=== PATIENT | female | born 1965 | race Caucasian/White ===

== ENCOUNTER 2016-12-01 14:28 | Day surgery (SDC) | payer BC ==
[2016-12-01] VITALS (11 sets, daily range): BP systolic 104–171; BP diastolic 52–71; PULSE 54–66; RESP 16–22; Ht 165.1 cm; Wt 109.0 kg
[~2016-12-01] VITALS: Ht 165.1 cm; Wt 109.0 kg
[2016-12-01] MEDS ORDERED: METF850T PO (16:40)
[2016-12-01] MEDS ORDERED: DAPA5TAB PO (16:40)
[2016-12-01] MEDS ORDERED: PROP40SO PO (16:40)
[2016-12-01] MEDS ORDERED: LISI20TA11 PO (16:40)
[2016-12-01] MEDS ORDERED: [UNRECOGNIZED DRUG - CODE] MC (16:40)
[2016-12-01] MEDS ORDERED: AMLO-147 PO (16:40)
[2016-12-01] MEDS ORDERED: MIDAZOLAM 1 MG/ML 2 ML INJ ONE (17:52)
[2016-12-01] MEDS ORDERED: FENTAnyl 50 MCG/ML VIAL ONE (17:52)
[2016-12-01] MEDS ORDERED: DEXAMETHASONE 4 MG/ML 1 ML INJ ONE (17:52)
[2016-12-01] MEDS ORDERED: PROPOFOL 20 ML ONE (17:52)
[2016-12-01] MEDS ORDERED: GLYCOPYRROLATE 0.4 MG INJ ONE (17:52)
[2016-12-01] MEDS ORDERED: ONDANSETRON 4 MG INJ ONE (17:52)
[2016-12-01] MEDS ORDERED: NEOSTIGMINE 3 MG/3 ML SYRINGE ONE (17:52)
[2016-12-01] MEDS ORDERED: ROCURONIUM 50 MG INJ ONE (17:52)
[2016-12-01] MEDS ORDERED: CEFAZOLIN 1 GM INJ ONE (17:52)
[2016-12-01 17:55] LABS: BASOPHIL # 0.1 10^3/ul (0.0-0.1); BASOPHILS % 0.8 % (0.0-2.0); EOSINOPHILS # 0.1 10^3/ul (0.0-0.5); EOSINOPHILS % 1.7 % (0.0-7.0); HEMATOCRIT 40.2 % (37.0-47.0); LYMPHOCYTES % 26.7 % (15.0-51.0); MEAN CORPUSCULAR HEMOGLOBIN 30.5 pg (29.0-33.0); MEAN CORPUSCULAR HGB CONC 34.8 g/dl (32.0-37.0); MEAN CORPUSCULAR VOLUME 87.6 fl (82.0-101.0); MEAN PLATELET VOLUME 9.7 fl (7.4-10.4); MONOCYTE # 0.6 10^3/ul (0.3-0.9); MONOCYTES % 8.2 % (0.0-11.0); NEUTROPHIL # 4.6 10^3/ul (1.6-7.5); NEUTROPHILS % 62.2 % (39.0-77.0); PLATELET COUNT 366 10^3/UL (140-415); RED BLOOD COUNT 4.59 10^6/ul (4.20-5.40); RED CELL DISTRIBUTION WIDTH 12.7 % (11.5-14.5); WHITE BLOOD COUNT 7.5 10^3/ul (4.8-10.8)
[2016-12-01] MEDS ORDERED: POLYMYXIN/BACITRACIN 1L IRRIG ONE (18:08)
[2016-12-01] MEDS ORDERED: ROPIVACAINE 0.5 % 30 ML VIAL ONE (18:11)
--- NOTE | 2016-12-01 18:17 | HPN ---
Date/Time of Note Date/Time of Note DATE: 12/01/16 TIME: 18:17 Interval H&P Admission Note Pt. seen H&P reviewed: No system changes AARON EDWARDS MD Dec 01, 2016 18:17
--- NOTE | 2016-12-01 18:19 | SIPON ---
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
[2016-12-01] MEDS ORDERED: hydrALAzine 20 MG INJ IV PRN (19:30)
[2016-12-01] MEDS ORDERED: MIDAZOLAM 1 MG/ML 2 ML INJ IV PRN (19:30)
[2016-12-01] MEDS ORDERED: ALBUTEROL 0.083% (NEB) 2.5 MG/3 ML AMP HHN PRN (19:30)
[2016-12-01] MEDS ORDERED: FENTAnyl 50 MCG/ML VIAL IV PRN ×3 (19:30)
[2016-12-01] MEDS ORDERED: IPRATROPIUM (NEB) 0.5 MG/2.5 ML AMP HHN PRN (19:30)
[2016-12-01] MEDS ORDERED: LABETALOL HCL 20MG INJ IV PRN (19:30)
[2016-12-01] MEDS ORDERED: EPHEDrine SULFATE 50 MG/5 ML SYG IV PRN (19:30)
[2016-12-01] MEDS ORDERED: TRIMETHOBENZAMIDE 100 MG/ML VIAL IM PRN (19:30)
[2016-12-01] MEDS ORDERED: OXYCODONE/ACETAMINOPHEN (5/325) TAB PO PRN ×2 (19:30)
[2016-12-01] MEDS ORDERED: MEPERIDINE 25 MG INJ IV PRN (19:30)
[2016-12-01] MEDS ORDERED: DIPHENHYDRAMINE 50 MG INJ IV PRN (19:30)
[2016-12-01] MEDS ORDERED: ONDANSETRON 4 MG INJ IV PRN (19:30)
[2016-12-01] MEDS ORDERED: HYDROmorphONE (0.2 MG/ML) 10ML SYG IV PRN ×3 (19:30)
[2016-12-01] MEDS ORDERED: BUPIVACAINE 0.25% (MPF) 30 ML INJ ONE (19:32)
[2016-12-01] MEDS ORDERED: LIDOCAINE 1% (STERILE-PAK) 30 ML INJ ONE (19:32)
--- NOTE | 2016-12-01 22:33 | RADRPT ---
PROCEDURE: Intraoperative imaging of the right wrist with fluoroscopy. CLINICAL INDICATION: Right wrist pain. Intraoperative. TECHNIQUE: 17 images of the right wrist were obtained in the operating room with an image intensif ier. No radiologist was in attendance. Fluoroscopy time is 15 seconds. COMPARISON: No prior study is available for comparison. FINDINGS: Images demonstrate open reduction and internal fixation of the comminuted fracture of the distal rad ius. There is placement of a plate and multiple screws transfixing the fracture in satisfactory posi tion. IMPRESSION: 1. Intraoperative imaging of the right wrist. RPTAT: QQ .Christ Isabel MD, Date Time Electronically viewed and signed by .Christ Isabel MD, on 12/01/2016 22:33 .R/
--- NOTE | 2016-12-02 04:12 | OPR ---
DATE OF OPERATION: 12/01/2016 PREOPERATIVE DIAGNOSIS: Patient sustained a comminuted distal articular radius fracture with a significant depression lunate facet. POSTOPERATIVE DIAGNOSIS: Patient sustained a comminuted articular radius fracture with a significant depression lunate facet. OPERATIVE PROCEDURE: Open reduction, internal fixation, elevation of a lunate facet. and distal radius SURGEON: Dr. Davide Gilmore. SHRIMP PICKER: Staff. ANESTHESIOLOGIST: Dr. Ralph. ANESTHESIA: supraclavicular block. managed care SURGICAL PAUSE: In the pre-operative holding area, I examined the patient, confirmed the operative procedure, planned the patient awake. Informed consent at the time of the scheduled operative procedure, we talked about the risks and hazards of surgery and mentioned the mortality, wound infection, nerve injury, good result, bad result, potential complications. The patient signed a note and documented informed consent conversation. OPERATIVE PROCEDURE: The patient was taken to surgery and anesthetized as above, sterilely prepped and draped. A pneumatic tourniquet inflated to 250 mmHg. A flexor carpi radialis approach was done to the distal radius with subperiostial exposed. The pronator quadratus was divided and retracted, the brachioradialis released. There was a T-type fracture but the lunate facit was significantly depressed. We manipulated the fracture into a reduced position and held it reduced with temporary Anthony fixation. Applied a Tri-Med fixed hole plate, 5-hole into the distal radius, except not fixing the lunate facit Once the plate was fixed, we did elevated the lunate facet and had to take a lot of time doing that to get that really elevated and then fixed it with the last couple holes of the plate and one additional screw approximately. That, finally, after some struggle, got me a nice reduction of lunate facet. So we had the radius reduced. The volar articular line is congruent across the X-rays, meaning when you look at an x-ray, the most prominent liang in the distal radius is the volar edge of the radius as contrasted to the dorsal lip, which you only see well on the lateral view. On the AP and lateral x-ray, everything looks reduced. There is no metal in the joint, there is no metal in the sigmoid notch. One screw, the extra screw that I put that is not in the plate is a proud couple of millimeters on the dorsum of the wrist, which I accepted. I think that screw is critical to my reduction and I did not want to mess with it. I was afraid that if I would have tried to swap it out, I would lose that nice reduction of the lunate facet, which was the primary goal of all the surgery. Wound is closed in layers with Vicryl deep and Vicryl subticular. DISCHARGE MEDICATIONS: Hydrocodone with acetaminophen and Keflex. FOLLOW-UP: Follow-up will be in our office in a week. We will keep her splinted two or three weeks, then start her on exercises. Dictated By: Davide Gilmore MD /[email or web address] /Document#: [id number] [email or web address]
== END 2016-12-01 21:35 | disposition home or self-care (01) ==
LOC: SDS 14:28
PROVIDERS: ATTEND Orthopaedic Surgery Hand Surgery
DX: S52.591A Other fractures of lower end of right radius, initial encounter for closed fracture (principal); E11.9 Type 2 diabetes mellitus without complications; I10 Essential (primary) hypertension; Z72.0 Tobacco use
CPT/HCPCS: 25607; 73110; 82962; 84703; 85025; C1713; J0690; J1100; J2250; J2405; J2795; J3010; J2710